=== PATIENT | female | born 1940 | race Caucasian/White ===

== ENCOUNTER 2020-08-22 20:05 | Inpatient (IN) | payer OTHER ==
[~2020-08-22] VITALS: Ht 162.6 cm; Wt 64.9 kg
[2020-08-22 23:39] VITALS: BP 138/68
[2020-08-23 03:24] VITALS: BP 136/60
[2020-08-23 08:10] VITALS: BP 152/79
[2020-08-23] MEDS ORDERED: NORVASC5 MG PO (08:27)
[2020-08-23] MEDS ORDERED: ACETAMINOPHEN650 M5 PO (08:27)
[2020-08-23] MEDS ORDERED: PROZAC40 MG PO (08:28)
[2020-08-23] MEDS ORDERED: MEVACOR10 MG PO (08:29)
[2020-08-23] MEDS ORDERED: MILK OF MA2400 MG/11 PO (08:30)
[2020-08-23] MEDS ORDERED: TIMOLOL MALEATE5 M2 OPHTHALMIC (08:30)
[2020-08-23] MEDS ORDERED: ABILIFY 2 MG2 M1 PO (08:31)
[2020-08-23] MEDS ORDERED: CARBIDOPA-LEVO1 EAC5 PO (08:32)
[2020-08-23] MEDS ORDERED: MEGESTROL400 MG/11 PO (10:26)
--- NOTE | 2020-08-23 15:07 | NUR ---
ASSESSMENT: CM REVIEWED CHART AND SPOKE WITH PATIENT AND HER . PT LIVES IN [place], [place] AND CAME IN FROM [facility] AFTER A POSSIBLE FALL. CM SPOKE WITH PATIENTS AND HE WISHES THAT PATIENT RETURN THERE AT DISCHARGE. PT HAS A HX OF PARKINSONS. PRIOR TO SNF PT WAS LIVING AT HOME WITH HER . PT NOW HAS A T2-T3 COMPRESSION FRACTURE AND IS BEING SEEN BY IR. RUSSELL UPDATED L[place]ZAR[place] IN ADMISSIONS AT [facility] AND FAXED [facility] CLINICAL [phone]. CM WILL CONTINUE TO FOLLOW TO ASSIST NEEDED. PT UNABLE TO WORK WITH THERAPY AT THIS TIME.
--- NOTE | 2020-08-23 16:36 | NUR ---
Assessed patient at 7:00 AM. Pt confused only oriented to self. Awake and cooperative. and daughter at bedside. State mother tries to get OOB regularly. Family did not bring patients glasses. She wears an upper partial. She has been incontinent twice today. No BM. Remains on room air. IV in left AC. Lives in [facility]. Family states she has lost 50 pounds this year. She is receiving an appetite stimulant. She has colby in cranial wound. No discharge or dressing noted. Fall precautions in place. Call light within reach. Will moniotr until end of shift. Going to move pt. closer to nurses station for safety measures.
[2020-08-23 16:53] VITALS: BP 133/68
[2020-08-23 19:00] VITALS: BP 108/86
[2020-08-24 04:28] VITALS: BP 182/83
[2020-08-24 06:29] VITALS: BP 154/86
[2020-08-24 08:37] VITALS: BP 128/66
--- NOTE | 2020-08-24 11:56 | NUR ---
Received awake on bed. Due medications given as prescribed, able to swallow meds w/o difficulty. On room air. Vital signs stable. On MS, not on telemetry; no complains and signs of chest pain, crushing sensation and heaviness. Assisted in ADLs. On heart healthy diet; assisted and encouraged in eating and drinking; no nausea, no vomiting and no abdominal pain noted. With on and off incontinence; checked frequently and changed as needed; offered toileting frequently- able to bedside commode with walker and gait belt. Falls bundle in place. With SL at L AC- intact. With laceration at head from fall from facility.
--- NOTE | 2020-08-24 15:02 | NUR ---
ON-GOING ASSESSMENT: CM REVIEWED CHART AND SPOKE WITH ATTENDING. PT IS SLOWLY PROGRESSING TOWARDS DISCHARGE GOALS AND WORKING ON PAIN MANAGEMENT. CM FAXED UPDATED CLINICAL TO [facility]. CM ALSO SPOKE WITH PTS IN THE ROOM AND ANTICIPATE D/C SOON. CM WILL CONTINUE TO FOLLOW TO ASSIST NEEDED.
[2020-08-24 15:30] VITALS: BP 129/74
[2020-08-24 18:58] VITALS: BP 112/58
--- NOTE | 2020-08-25 02:58 | NUR ---
ASSUMED CARE OF PT AT 1900. PT IS A/O X1 AND IS CONFUSED AND IMPULSIVE. ROOM AIR. VSS. AFEBRILE. DENIES C/O PAIN. HAS NOT SLEPT MUCH THIS NOC AND MOVES AROUND KICKING HER LEGS UP IN THE AIR OFTEN. PLEASANT AND COOPERATIVE WITH CARES. INCONTINENT OF BOWEL AND BLADDER. HAS NOT REQUESTED TO USE BSC PREVIOUSLY MENTIONED DURING REPORT. SWALLOWED MEDICATIONS WHOLE WITHOUT ISSUES. IN ROOM NEAR NURSES STATION WITH FREQUENT CHECKS. FALL PRECAUTIONS IN PLACE, CALL LIGHT IS WITHIN REACH. WILL CONTINUE TO MONITOR.
[2020-08-25 04:24] VITALS: BP 164/74
[2020-08-25 07:20] VITALS: BP 124/59
[2020-08-25 09:30] VITALS: BP 124/59
--- NOTE | 2020-08-25 12:04 | NUR ---
ON-GOING ASSESSMENT: CM REVIEWED CHART AND SPOKE WITH ATTENDING. PT IS NOT ABLE TO ANSWER CM QUESTIONS AT THIS TIME AND PT WAS UNABLE TO WAKE UP ENOUGH FOR THERAPY THIS AM AND BEDSIDE RN AWARE. ATTENDING ON THE UNIT ROUNDING AND SAW PATIENT. CM SPOKE WITH PATIENTS AND CLARIFIED THAT PATIENT HAD BEEN ON THE SKILLED SIDE AT THE FACILITY BUT THEN STOPPED PARTICIPATING WITH THERAPY SO HAS ALSO BEEN LTC WITH THEM. STATING HE IS OK WITH HER GOING TO SNF OR LTC. CM ATTEMPTED TO REACH PATIENTS DAUGHTER NELLY [phone] WHO IS A RN BUT VM WAS LEFT. CM ALSO FAXED UPDATED CLINICAL TO HER FACILITY [facility]. CM WILL CONTINUE TO FOLLOW.
[2020-08-25 13:54] LABS: HEMATOCRIT 35.2 % (37.0-47.0); HEMOGLOBIN 11.9 gm/dL (12.0-15.0); MCH 32.7 pg (26.0-34.0); MCHC 33.8 g/dL (28.0-37.0); MCV 96.8 fL (80.0-100.0); RBC 3.64 mil/uL (4.20-5.00); RDW 13.4 % (10.5-14.5); WBC 7.7 thou/uL (4.0-11.0)
[2020-08-25 14:15] LABS: ALBUMIN 3.5 g/dL (3.4-5.0); CALCIUM 9.3 mg/dL (8.5-10.1); CREATININE 0.8 mg/dL (0.6-1.0); MAGNESIUM 1.8 mg/dL (1.8-2.4); POTASSIUM 4.1 mmol/L (3.5-5.1); TOTAL BILIRUBIN 0.5 mg/dL (0.2-1.0); TOTAL PROTEIN 6.8 g/dL (6.4-8.2)
--- NOTE | 2020-08-25 14:22 | NUR ---
PT ASSESSED AT START OF SHIFT. PT VERY SLEEPY THIS AM AND WOULD ONLY AWAKEN FOR BRIEF PERIOD TO TAKE SIP OF WATER AND THEN WOULD FALL BACK ASLEEP. AROUND 1300 PT AWAKENED FULLY W/ BRIGHT AFFECT AND WAS ABLE TO FEED HERSELF. RN DAUGHTER NELLY IN FROM [place] TO VISIT AND TALKED W/ DR. WRIGHT ABOUT TAKING MOTHER BACK TO HER FACILITY FEELING MOTHER WAS AT HER BASELINE. PT TO DISCHARGE THIS AFTERNOON AND DAUGHTER TO TRANSPORT IN HER CAR.
--- NOTE | 2020-08-25 14:39 | NUR ---
ON-GOING ASSESSMENT: RUSSELL REVIEWED CHART AND RECEIVED A CALL FROM PATIENTS DAUGHTER NELLY WHO IS AT THE BEDSIDE. SHE REPORTS THAT HER MOTHER APPEARS TO BE BACK AT HER BASELINE AND WAS HOPEFUL SHE COULD DISCHARGE BACK TO HER LTC FACILITY TODAY. CM REACHED OUT TO ATTENDING. PT IS STABLE TO DISCHARGE BACK TO FACILITY TODAY. RUSSELL SPOKE EALIER WITH DINORA THE HYDRAULIC TESTER AT THE FACILITY BUT CM CALLED BACK THIS AFTERNOON DUE TO DAUGHTERS REQUEST FOR HER TO RETURN TODAY BUT DINORA HAS LEFT AND CM SPOKE WITH EMMA AND CLARA WHO REPORT PT CAN COME BACK TODAY LONG NO MEDICATION CHANGES. CM NOTIFIED ATTENDING. PLANS ARE FOR PATIENT TO RETURN BACK TO HER FACILITY [facility] TODAY. CM NOTIFIED EMMA AT FACILITY AND BEDSIDE RN IS TO CALL THEIR RN CLARA. CM PROVIDED BEDSIDE RN WITH THE NUMBER FOR REPORT. CHART COPY WAS MADE. BEDSIDE RN REQUESTING TO TRANSPORT PATIENT TO FACILITY SHE FEELS COMFRTABLE AND JUST RECENTLY TOOK HER ON AN OUTING FROM THE LTC SO FEELS COMFORTABLE WITH TRANSFERING AND PREFERS THIS. CM NOTIFIED ATTENDING WELL. BEDSIDE RN TO CALL REPORT AND CM NOTIFIED BEDSIDE RN TO PLEASE SENT DAUGHTER WITH CHART COPY. CM FAXED DISCHARGE ORDERS TO THE FACILITY AND CONFIRMED THEY RECEIVED IT. PT REPORTS NO FURTHER NEEDS FROM RUSSELL AT THIS TIME.
== END 2020-08-25 15:26 | DRG 544 ==
LOC: 4S 20:05
PROVIDERS: Internal Medicine; ADMIT Hospitalist; ATTEND Hospitalist
DX: M48.54XA Collapsed vertebra, not elsewhere classified, thoracic region, initial encounter for fracture (principal); I10 Essential (primary) hypertension; F32.9 Major depressive disorder, single episode, unspecified; E78.5 Hyperlipidemia, unspecified; G20 Parkinson's disease; R53.81 Other malaise; Z66 Do not resuscitate; G89.29 Other chronic pain; M54.9 Dorsalgia, unspecified; Z90.710 Acquired absence of both cervix and uterus; Z82.3 Family history of stroke; Z79.899 Other long term (current) drug therapy
CPT/HCPCS: 10102